=== PATIENT | female | born 1940 | race Caucasian/White ===

== ENCOUNTER 2023-04-14 13:48 | Outpatient (RCR) | payer MEDICARE, OTHER, SELFPAY | END 2023-04-29 14:00 | disposition home or self-care (01) | LOC: PT 13:48 | PROVIDERS: PCP Family Medicine | DX: M16.11 Unilateral primary osteoarthritis, right hip (principal); Z96.641 Presence of right artificial hip joint | CPT/HCPCS: 97110; 97112; 97162 ==